=== PATIENT | male | born 1990 | race Caucasian/White ===

== ENCOUNTER 2024-10-05 16:15 | Inpatient (IN) | payer MEDICAID ==
[~2024-10-05] VITALS: Ht 182.9 cm; Wt 75.9 kg
[2024-10-05 16:15] VITALS: BP 97/62; PULSE 104; RESP 16; TEMP 98.4; O2SAT 98
[2024-10-05] MEDS ORDERED: mag hydrox/Alum hydrox/simeth 30ml oral suspension PO PRN (17:15)
[2024-10-05] MEDS ORDERED: magnesium hydroxide 30ml (MOM) UD suspension PO PRN (17:15)
[2024-10-05] MEDS ORDERED: loperamide 2mg capsule PO PRN (17:15)
[2024-10-05 19:00] VITALS: RESP 14; O2SAT 97
[2024-10-05 20:00] VITALS: BP 102/61; PULSE 84; RESP 14; TEMP 98.2; O2SAT 97
[2024-10-05] MEDS: QUEtiapine 25mg tablet PO ONE (22:41)
[2024-10-06 07:00] VITALS: RESP 16; O2SAT 95
[2024-10-06 08:00] VITALS: BP 102/54; PULSE 87; RESP 16; TEMP 97.9; O2SAT 95
[2024-10-06] MEDS: acetaminophen 325mg tablet PO PRN (09:04)
[2024-10-06] MEDS: BUPROPION HCL 150MG XL 24 HR 150 MG TAB PO SCH (17:38)
[2024-10-06 19:21] VITALS: BP 123/78; PULSE 70; RESP 16; TEMP 98; O2SAT 98
[2024-10-06 19:23] VITALS: RESP 16; O2SAT 98
[2024-10-06] MEDS: aripiprazole 5mg tablet PO SCH (20:24)
[2024-10-06] MEDS: hydrOXYzine 25 MG tablet PO PRN (20:24)
[2024-10-07 07:30] VITALS: BP 119/79; PULSE 86; RESP 16; TEMP 98.2; O2SAT 97
[2024-10-07] MEDS ORDERED: dextroamphetamine/amphetamine 5mg tablet PO SCH (08:00)
[2024-10-07] MEDS: dextroamphetamine/amphetamine 5mg tablet PO SCH ×2 (08:00→12:00)
[2024-10-07 19:00] VITALS: RESP 18; O2SAT 96
[2024-10-07 20:00] VITALS: BP 104/66; PULSE 78; RESP 18; TEMP 97.9; O2SAT 96
[2024-10-07 20:45] VITALS: BP 123/85; PULSE 74; RESP 16; O2SAT 97
[2024-10-07 21:30] VITALS: BP_SYST 103; BP_SYST 108; BP_SYST 110; BP_DIAS 69; BP_DIAS 70; PULSE 110; PULSE 69; PULSE 95; RESP 16; TEMP 98.9; O2SAT 96; O2SAT 97
[2024-10-08 08:00] VITALS: BP 101/74; PULSE 81; RESP 14; TEMP 97.8; O2SAT 97
[2024-10-08] MEDS: BUPROPION HCL 150MG XL 24 HR 150 MG TAB PO SCH (16:17)
[2024-10-08] MEDS: OLANZapine 5mg rapidly disint. tablet PO ONE (16:17)
[2024-10-08 19:00] VITALS: RESP 18; O2SAT 95
[2024-10-08 19:39] LABS: BASOPHILS % (AUTO) 0.3 % (0-1); EOSINOPHILS # (AUTO) 0.1 X10'3 (0-0.9); EOSINOPHILS % (AUTO) 2.3 % (0-6); HEMATOCRIT 39.2 % (42.0-52.0); HEMOGLOBIN 13.4 g/dl (14.0-17.9); LYMPHOCYTES # (AUTO) 1.7 X10'3 (1.1-4.8); LYMPHOCYTES % (AUTO) 31.8 % (21-51); MEAN CORPUSCULAR HGB CONC 34.1 g/dL (33.0-36.5); MEAN CORPUSCULAR VOLUME 90.7 FL (78-98); MEAN PLATELET VOLUME 7.5 FL (7.4-10.4); MONOCYTES # (AUTO) 0.6 X10'3 (0-0.9); MONOCYTES % (AUTO) 10.6 % (2-12); NEUTROPHILS # (AUTO) 2.9 X10'3 (1.8-7.7); PLATELET COUNT 248 X10'3 (140-440); RED BLOOD COUNT 4.32 X10'6 (4.70-6.10); RED CELL DISTRIBUTION WIDTH 16.4 % (11.5-14.5); WHITE BLOOD COUNT 5.3 X10'3 (4.5-11.0)
[2024-10-08 19:40] VITALS: BP 90/60; PULSE 74; RESP 20; TEMP 97; O2SAT 95
[2024-10-08 19:59] LABS: ALANINE AMINOTRANSFERASE 17 U/L (12-78); ALBUMIN 3.7 G/DL (3.4-5.0); ALBUMIN/GLOBULIN RATIO 1.1 (1.1-1.5); ALKALINE PHOSPHATASE 58 IU/L (46-116); ANION GAP 8 (8-16); ASPARTATE AMINO TRANSFERASE 13 U/L (10-37); BILIRUBIN,TOTAL 0.8 MG/DL (0.1-1.0); BLOOD UREA NITROGEN 15 MG/DL (7-18); BUN/CREATININE RATIO 17.6 (10.0-20.0); CALCIUM 8.3 MG/DL (8.5-10.1); CHLORIDE 104 MMOL/L (99-107); CREATININE 0.85 MG/DL (0.60-1.10); GLUCOSE 88 MG/DL (70-104); SODIUM 141 MMOL/L (135-145); TOTAL CARBON DIOXIDE 28.8 MMOL/L (24-32); TOTAL PROTEIN 7.1 G/DL (6.4-8.2); eCRCL 107 ML/MIN; eGFR > 90 ML/MIN
[2024-10-08 20:00] VITALS: BP_SYST 103; BP_SYST 110; BP_DIAS 51; BP_DIAS 70; PULSE 59; PULSE 83; RESP 16; RESP 18; TEMP 97.3; TEMP 98; O2SAT 100; O2SAT 95
[2024-10-09 07:40] VITALS: RESP 16; O2SAT 99
[2024-10-09 08:00] VITALS: BP 109/57; PULSE 52; RESP 16; TEMP 97.5; O2SAT 99
[2024-10-09] MEDS: aripiprazole 5mg tablet PO SCH (15:29)
[2024-10-09 19:00] VITALS: RESP 15; O2SAT 97
[2024-10-09 20:00] VITALS: BP 106/70; PULSE 78; RESP 15; TEMP 98.3; O2SAT 97
[2024-10-10 07:00] VITALS: RESP 18; O2SAT 97
[2024-10-10 08:00] VITALS: BP 104/54; PULSE 63; RESP 18; TEMP 97.7; O2SAT 97
[2024-10-10] MEDS: lactose-reduced food (Ensure Enlive) - 237ml bottle PO SCH (17:13)
[2024-10-10 19:00] VITALS: RESP 15; O2SAT 97
[2024-10-10] MEDS: NICOTINE POLACRILEX 2 MG LOZENGE BC PRN (19:16)
[2024-10-10 19:49] VITALS: BP 126/82; PULSE 80; RESP 15; TEMP 98.1; O2SAT 97
[2024-10-10] MEDS: traZODone 50mg tablet PO SCH (20:00)
[2024-10-10] MEDS: aripiprazole 15 MG tablet PO SCH (21:00)
[2024-10-10] MEDS ORDERED: aripiprazole 10MG tablet PO SCH (21:00)
[2024-10-11 08:00] VITALS: BP 104/74; PULSE 79; RESP 18; TEMP 98.5; O2SAT 95
[2024-10-11 11:36] VITALS: BP 104/74; PULSE 79; RESP 18; TEMP 98.5; O2SAT 95
[2024-10-11 19:27] VITALS: RESP 16; O2SAT 98
[2024-10-11 19:33] VITALS: BP 107/74; PULSE 97; RESP 16; TEMP 98.4; O2SAT 98
[2024-10-12 07:21] VITALS: BP 103/62; PULSE 77; RESP 16; TEMP 97.9; O2SAT 98
[2024-10-12 08:00] VITALS: RESP 16; O2SAT 98
[2024-10-12 19:40] VITALS: BP 97/54; PULSE 68; RESP 14; TEMP 97.8; O2SAT 97
[2024-10-13 07:50] VITALS: BP 108/67; PULSE 66; RESP 16; TEMP 98.6; O2SAT 97
[2024-10-13 08:00] VITALS: RESP 16; O2SAT 97
[2024-10-13] MEDS: multivitamins, therapeutics tablet PO SCH (15:26)
[2024-10-13 19:00] VITALS: RESP 16; O2SAT 97
[2024-10-13 19:42] VITALS: BP 107/57; PULSE 77; RESP 18; TEMP 99.7; O2SAT 97
[2024-10-14 07:00] VITALS: BP 100/61; PULSE 100; RESP 16; TEMP 98.3; O2SAT 98
[2024-10-14] MEDS: BUPROPION HCL 150MG XL 24 HR 150 MG TAB PO ONE (11:55)
[2024-10-14 19:00] VITALS: RESP 16; O2SAT 97
[2024-10-14 20:00] VITALS: BP 92/55; PULSE 78; RESP 16; TEMP 98.1; O2SAT 97
[2024-10-14] MEDS: traZODone 50mg tablet PO SCH (20:00)
[2024-10-14] MEDS: aripiprazole 5mg tablet PO SCH (21:00)
[2024-10-15 07:00] VITALS: BP 115/68; PULSE 60; RESP 13; RESP 18; TEMP 98.2; O2SAT 99
[2024-10-15] MEDS ORDERED: BUPROPION HCL 150MG XL 24 HR 150 MG TAB PO SCH (08:00)
[2024-10-15] MEDS: aripiprazole 10MG tablet PO ONE (16:01)
[2024-10-15] MEDS: BUPROPION HCL 150MG XL 24 HR 150 MG TAB PO ONE (16:01)
[2024-10-15 18:41] VITALS: RESP 18
[2024-10-15 20:00] VITALS: BP 96/52; PULSE 72; RESP 16; TEMP 98.2; O2SAT 97
[2024-10-16 07:00] VITALS: RESP 14; O2SAT 100
[2024-10-16 08:00] VITALS: BP 109/67; PULSE 54; RESP 14; TEMP 98.1; O2SAT 100
[2024-10-16 18:30] VITALS: RESP 18
[2024-10-16 20:41] VITALS: BP 112/90; PULSE 65; RESP 16; TEMP 98.4; O2SAT 96
[2024-10-17 07:00] VITALS: RESP 16; O2SAT 98
[2024-10-17 08:00] VITALS: BP 94/62; PULSE 68; RESP 16; TEMP 98.2; O2SAT 98
[2024-10-17 19:00] VITALS: RESP 15; O2SAT 96
[2024-10-17 19:40] VITALS: BP 96/57; PULSE 75; RESP 15; TEMP 99.4; O2SAT 96
[2024-10-18 07:00] VITALS: RESP 12; O2SAT 99
[2024-10-18 07:51] VITALS: BP 103/79; PULSE 92; RESP 12; TEMP 98.2; O2SAT 99
[2024-10-18] MEDS: cyanocobalamin 1,000 mcg/ml inj SQ ONE (18:51)
[2024-10-18 19:00] VITALS: RESP 18; O2SAT 98
[2024-10-18 20:00] VITALS: BP 88/53; PULSE 72; RESP 22; TEMP 97.9; O2SAT 98
[2024-10-19 07:00] VITALS: BP 99/56; PULSE 67; RESP 14; RESP 16; TEMP 98.3; O2SAT 98
[2024-10-19] MEDS: polyethylene glycol 3350 17gm powd pack PO SCH (13:28)
[2024-10-19 19:00] VITALS: RESP 16; O2SAT 98
[2024-10-19 20:00] VITALS: BP 114/65; PULSE 88; RESP 16; TEMP 98.1; O2SAT 98
[2024-10-20 07:00] VITALS: BP 103/65; PULSE 102; RESP 17; RESP 18; TEMP 98.2; O2SAT 98
[2024-10-20 19:00] VITALS: RESP 14; O2SAT 98
[2024-10-20 19:13] VITALS: BP 108/73; PULSE 79; RESP 14; TEMP 97.7; O2SAT 98
[2024-10-20] MEDS: traZODone 50mg tablet PO PRN (20:39)
[2024-10-21 07:00] VITALS: RESP 14; O2SAT 97
[2024-10-21 08:00] VITALS: BP 97/60; PULSE 76; RESP 14; TEMP 98; O2SAT 97
[2024-10-21 19:41] VITALS: RESP 16; O2SAT 96
[2024-10-21 19:54] VITALS: BP 95/59; PULSE 78; RESP 18; TEMP 98.3; O2SAT 96
[2024-10-21] MEDS: haloperidol 5mg tablet PO SCH (20:53)
[2024-10-21] MEDS: aripiprazole 5mg tablet PO SCH (20:53)
[2024-10-22 07:00] VITALS: RESP 14; O2SAT 98
[2024-10-22 08:00] VITALS: BP 97/58; PULSE 61; RESP 14; TEMP 96.9; O2SAT 98
[2024-10-22 18:35] VITALS: RESP 16
[2024-10-22 19:15] VITALS: BP 100/53; PULSE 73; RESP 15; TEMP 98.4; O2SAT 97
[2024-10-22] MEDS: aripiprazole 5mg tablet PO SCH (20:13)
[2024-10-22] MEDS: ketorolac trometh 15mg/ml vial 15 MG/ML ML IM ONE (22:01)
[2024-10-22] MEDS: traMADol 50MG tablet PO ONE (22:11)
[2024-10-23 07:00] VITALS: RESP 12; O2SAT 99
[2024-10-23 08:00] VITALS: BP 100/57; PULSE 64; RESP 12; TEMP 98.1; O2SAT 98
[2024-10-23 09:00] LABS: CHOLESTEROL 128 MG/DL (0-200); HDL CHOLESTEROL 42 MG/DL (35-60); LDL CHOLESTEROL 75 MG/DL (50-100); TRIGLYCERIDES 109 MG/DL (20-135)
[2024-10-23] MEDS: haloperidol 5mg tablet PO SCH (12:19)
[2024-10-23 18:21] VITALS: RESP 16; O2SAT 99
[2024-10-23 18:57] VITALS: BP 107/67; PULSE 79; RESP 16; TEMP 98.6; O2SAT 98
[2024-10-23 19:02] VITALS: BP 107/67; PULSE 79; RESP 16; TEMP 98.6; O2SAT 98
[2024-10-24 07:00] VITALS: RESP 16; O2SAT 99
[2024-10-24 08:00] VITALS: BP 122/74; PULSE 71; RESP 16; TEMP 98.2; O2SAT 98
[2024-10-24 19:00] VITALS: RESP 14; O2SAT 97
[2024-10-24 19:16] VITALS: BP 109/68; PULSE 93; RESP 14; TEMP 98.3; O2SAT 97
[2024-10-24 21:00] VITALS: PULSE 80
[2024-10-25 07:00] VITALS: RESP 17; O2SAT 98
[2024-10-25 07:32] VITALS: BP 98/59; PULSE 86; RESP 17; TEMP 98; O2SAT 98
[2024-10-25 08:00] VITALS: BP 98/59; PULSE 86; RESP 17; TEMP 98; O2SAT 98
[2024-10-25 19:00] VITALS: RESP 18; O2SAT 99
[2024-10-25 20:00] VITALS: BP 119/67; PULSE 94; RESP 16; TEMP 97.9; O2SAT 96
[2024-10-25] MEDS: acetaminophen 325mg tablet PO PRN (20:41)
[2024-10-26 07:30] VITALS: BP 112/64; PULSE 79; RESP 16; TEMP 98.1; O2SAT 96
[2024-10-26 08:07] VITALS: RESP 16; O2SAT 96
[2024-10-26] MEDS: benzocaine (Anbesol) 12ml bottle MM PRN (11:40)
[2024-10-26] MEDS ORDERED: HALO5TAB PO (13:42)
[2024-10-26] MEDS ORDERED: BUPR-94 PO (13:42)
[2024-10-26] MEDS ORDERED: MULT-25 PO (13:42)
[2024-10-26] MEDS ORDERED: HYDR-3686 PO (13:42)
[2024-10-26] MEDS ORDERED: CYAN100T47 PO (13:42)
[2024-10-26] MEDS ORDERED: TRAZ-251 PO (13:42)
[2024-10-26] MEDS ORDERED: acetaminophen 325mg tablet PO PRN (18:55)
[2024-10-26] MEDS ORDERED: ibuprofen 200mg tablet PO PRN (18:55)
[2024-10-26 19:00] VITALS: RESP 18; O2SAT 97
[2024-10-26 20:00] VITALS: BP 145/87; PULSE 101; RESP 20; TEMP 97.8; O2SAT 99
[2024-10-27 07:30] VITALS: BP 103/57; PULSE 72; RESP 14; TEMP 98.6; O2SAT 98
== END 2024-10-27 10:40 | disposition home or self-care (01) | DRG 751 ==
LOC: ADULT MH 16:15
PROVIDERS: ADMIT Psychiatry & Neurology Psychiatry; ATTEND Psychiatry & Neurology Psychiatry
PROC: GZHZZZZ Group Psychotherapy (ICD-10-PCS; principal; 2024-10-06)
PROC: GZ51ZZZ Individual Psychotherapy, Behavioral (ICD-10-PCS; 2024-10-06)
DX: F29 Unspecified psychosis not due to a substance or known physiological condition (principal); F22 Delusional disorders; R45.851 Suicidal ideations; E53.8 Deficiency of other specified B group vitamins; F90.9 Attention-deficit hyperactivity disorder, unspecified type; Z87.891 Personal history of nicotine dependence; Z59.00 Homelessness unspecified; Z79.899 Other long term (current) drug therapy
CPT/HCPCS: 36415; 80053; 80061; 82607; 82948; 84145; 85025; 85651; 87081; 97110; 97116; 97161; 97530; 99285; J3420; Q0177